=== PATIENT | female | born 1970 | race Caucasian/White ===

== ENCOUNTER 2023-06-25 13:13 | Inpatient (IN) | payer OTHER ==
[2023-06-25 14:57] VITALS: BMI 37.8
[2023-06-25] MEDS ORDERED: MAG HYDROX/AL HYDROX/SIMETH 30 ML UNIT-DOSE CUP PO PRN (16:18)
[2023-06-25] MEDS ORDERED: BENZOCAINE/MENTHOL (CHLORASEPTIC ) LOZENGE MM PRN (16:18)
[2023-06-25] MEDS ORDERED: LOPERAMIDE HCL 2 MG CAPSULE PO PRN (16:18)
[2023-06-25] MEDS ORDERED: NALOXONE HCL (KLOXXADO) 8 MG SPRAY NS PRN (16:18)
[2023-06-25] MEDS ORDERED: IBUPROFEN 400 MG TABLET (FP) PO PRN (16:18)
[2023-06-25] MEDS ORDERED: guaiFENesin 600 MG TABLET.ER (FP) PO PRN (16:18)
[2023-06-25] MEDS ORDERED: BENZONATATE 200 MG CAPSULE PO PRN (16:18)
[2023-06-25] MEDS ORDERED: POLYETHYLENE GLYCOL (HEALTHYLAX) 3350 17 GM PACKET PO PRN (16:18)
[2023-06-25] MEDS ORDERED: NALOXONE HCL 0.4 MG/ML VIAL IM PRN (16:18)
[2023-06-25] MEDS: SUCRALFATE 1 GM TABLET (FP) PO SCH (20:45)
[2023-06-25] MEDS: THIAMINE HCL 100 MG TABLET (FP) PO SCH (22:37)
[2023-06-25] MEDS: PANTOPRAZOLE 20 MG TABLET PO SCH (22:37)
[2023-06-25] MEDS: GABAPENTIN 100 MG CAPSULE PO SCH (22:37)
[2023-06-25] MEDS: MELATONIN 5 MG TABLETS PO SCH (22:37)
[2023-06-26] MEDS: HYDROXYCHLOROQUINE SO4 200 MG TABLET (FP) PO SCH (10:05)
[2023-06-26] MEDS: PRENATAL VITAMINS W/ FOLIC ACID TABLET (FP) PO SCH (10:07)
[2023-06-26] MEDS: amLODIPine BESYLATE 5 MG TABLET (FP) PO SCH (10:07)
[2023-06-26] MEDS: hydrOXYzine PAMOATE 25 MG CAPSULE (FP) PO PRN (10:07)
[2023-06-26] MEDS ORDERED: TUBERCULIN PPD 5 TU/0.1ML VIAL ID ONE (10:08)
[2023-06-26 11:39] LABS: HEMATOCRIT 40.6 % (32.4-45.2); HEMOGLOBIN 13.2 GM/dL (10.7-15.3); MCH 28.6 pg (25.7-33.7); MCHC 32.5 g/dl (32.0-36.0); MEAN CELL VOLUME 87.7 fl (80-96); MEAN PLT VOLUME 10.9 fl (7.5-11.1); PLATELET COUNT 233 10^3/uL (134-434); RBC 4.63 M/mm3 (3.60-5.2); RDW 14.4 % (11.6-15.6); WHITE BLOOD COUNT 7.1 K/mm3 (4.0-10.0)
[2023-06-26 11:49] LABS: CHLORIDE 108 mmol/L (98-107); POTASSIUM 4.4 mmol/L (3.5-5.1); SODIUM 140 mmol/L (136-145)
[2023-06-26 11:56] LABS: ALBUMIN 3.8 g/dl (3.4-5.0); ANION GAP 5 mmol/L (4-13); BLOOD UREA NITROGEN 13.1 mg/dL (7-18); CALCIUM 9.3 mg/dL (8.5-10.1); CO2 28 mmol/L (21-32); GLUCOSE,RANDOM 125 mg/dL (74-106); SGOT/AST 10 U/L (15-37); SGPT/ALT 21 U/L (13-61)
[2023-06-26 11:58] LABS: BILIRUBIN,TOTAL 0.4 mg/dL (0.2-1); TOT PROT 7.4 g/dl (6.4-8.2)
[2023-06-26 11:59] LABS: ALK PHOS 60 U/L (45-117)
[2023-06-26 12:00] LABS: CREATININE 0.9 mg/dL (0.55-1.3)
[2023-06-26 12:13] LABS: SYPHILIS W/ RPR CONF NON-REACTIVE (NONREACTIVE)
[2023-06-26] MEDS: PNEUMOC 20-VAL CONJ-DIP CRM/PF 0.5 ML SYRINGE IM ONE (12:31)
[2023-06-26] MEDS: LEFLUNOMIDE 10 MG TABLET PO SCH (15:16)
[2023-06-26] MEDS: IBUPROFEN 600 MG TABLET (FP) PO PRN (16:51)
[2023-06-27] MEDS: DULoxetine HCL 30 MG CAPSULE.DR PO SCH (09:01)
[2023-06-27] MEDS: SUCRALFATE 1 GM TABLET (FP) PO SCH (10:58)
[2023-06-27 11:56] LABS: PH,URINE 5.5 (5.0-8.0); URINE APPEARANCE CLEAR; URINE BILIRUBIN NEGATIVE (NEGATIVE); URINE COLOR YELLOW; URINE GLUCOSE (UA) NEGATIVE (NEGATIVE); URINE KETONE NEGATIVE (NEGATIVE); URINE LEUK ESTERASE NEGATIVE (NEGATIVE); URINE NITRITE NEGATIVE (NEGATIVE); URINE PROTEIN NEGATIVE (NEGATIVE); URINE UROBILINOGEN 0.2 mg/dL (0.2-1.0)
[2023-06-27] MEDS: METHOCARBAMOL 500 MG TABLET PO PRN (21:15)
[2023-06-30] MEDS: MAGNESIUM HYDROX 2400MG/30ML ORAL SUSPENSION 30 ML CUP PO PRN (12:35)
[2023-07-01] MEDS: GABAPENTIN 300 MG CAPSULE PO ONE (10:07)
[2023-07-01] MEDS: GABAPENTIN 300 MG CAPSULE PO SCH (13:44)
[2023-07-03] MEDS: GABAPENTIN 400 MG CAPSULE PO SCH (14:16)
[2023-07-03] MEDS: QUEtiapine FUMARATE 50 MG TABLET PO SCH (21:38)
[2023-07-03] MEDS ORDERED: QUEtiapine FUMARATE 100 MG TABLET (FP) PO SCH (22:00)
[2023-07-04] MEDS ORDERED: QUEtiapine FUMARATE 50 MG TABLET PO SCH (10:00)
[2023-07-04] MEDS: METHOCARBAMOL 750 MG TABLET PO PRN (21:23)
[2023-07-06] MEDS: METHOCARBAMOL 500 MG TABLET PO PRN (18:34)
[2023-07-07] MEDS: CELECOXIB 200 MG CAPSULE PO SCH (14:12)
[2023-07-08] MEDS: METHOCARBAMOL 750 MG TAB PO PRN (14:30)
[2023-07-08] MEDS: ACETAMINOPHEN 325 MG TABLET (FP) PO PRN (18:39)
[2023-07-09 15:20] VITALS: BP 122/66; PULSE 73; RESP 18; TEMP 97.6
== END 2023-07-09 10:00 | disposition home or self-care (01) | DRG 772 ==
LOC: YASAS 13:13 → Y3NR 19:51 → Y5N 06-28 21:40
PROVIDERS: ADMIT Allergy & Immunology; ATTEND Psychiatry & Neurology Pain Medicine
PROC: HZ42ZZZ Group Counseling for Substance Abuse Treatment, Cognitive-Behavioral (ICD-10-PCS; principal; 2023-06-25)
DX: F14.20 Cocaine dependence, uncomplicated (principal); F13.20 Sedative, hypnotic or anxiolytic dependence, uncomplicated; F12.20 Cannabis dependence, uncomplicated; F17.210 Nicotine dependence, cigarettes, uncomplicated; F31.81 Bipolar II disorder; F41.9 Anxiety disorder, unspecified; F43.10 Post-traumatic stress disorder, unspecified; J45.909 Unspecified asthma, uncomplicated; M32.9 Systemic lupus erythematosus, unspecified; M79.7 Fibromyalgia; Z86.59 Personal history of other mental and behavioral disorders; Z87.19 Personal history of other diseases of the digestive system
CPT/HCPCS: 36415; 80053; 80305; 80307; 81003; 81025; 82962; 85027; 86780; 86803; 87635; 90677; 93005; 93010